=== PATIENT | male | born 1955 | race Caucasian/White ===

== ENCOUNTER 2018-07-18 15:12 | Emergency (ER) | payer OTHER ==
[~2018-07-18 15:12] MED LIST: AMIODARONE HCL200 M1 PO; METOPROLOL SUCC25 M1 PO; PERCOCET 5-3251 EACH PO; WARFARIN SODIUM5 M1 PO
[2018-07-18 15:45] VITALS: BP 165/80
[2018-07-18] MEDS ORDERED: ESCITALOPRAM OX10 MG PO (15:47)
[2018-07-18] MEDS ORDERED: ATORVASTATIN CA40 M1 PO (15:47)
--- NOTE | 2018-07-18 17:47 | ULTRASOUND REPORT ---
EXAMINATION: US TRIPLEX OF LOWER EXTREMITIES, BILATERAL CLINICAL INFORMATION: Edema with swelling. COMPARISON: None TECHNIQUE: Color-flow triplex imaging with spectral analysis and compression Doppler were performed on the lower extremities. FINDINGS: Respiratory variation, normal compression and augmented flow are noted throughout the lower extremities. The visualized common femoral vein, superficial femoral vein, profunda femoral vein, popliteal vein and midcalf peroneal and posterior tibial venous segments show no evidence of deep venous thrombosis. There is no Vitale's cyst. IMPRESSION: No evidence of deep venous thrombosis involving the bilateral lower extremities.
--- NOTE | 2018-07-18 19:50 | ED UPPER/LOWER EXTREMITY COMPL ---
History of Present Illness General Chief Complaint: Lower Extremity Problems Stated Complaint: SIB DR. LAURENT FOR US Source: patient, old records Exam Limitations: no limitations Vital Signs & Intake/Output Vital Signs & Intake/Output Vital Signs Date Time Temp Pulse Resp B/P B/P Pulse O2 O2 Flow FiO2 Mean Ox Delivery Rate 07/18 2033 98 Room Air 07/18 1545 98.4 88 22 165/80 96 Room Air ED Intake and Output 07/19 0000 07/18 1200 Intake Total Output Total Balance Patient 231 lb Weight Allergies Coded Allergies: MDX - Strawberries (STRAWBERRIES) (Intermediate, RASH 11/17/11) MDX - Bee Venom (Bee Venom) (BEE STINGS 11/17/11) Uncoded Allergies: MUSHROOMS (Intermediate, RASH 11/17/11) PEPPERS (GI UPSET 05/23/16) Reconcile Medications Amiodarone (Cordarone) 200 MG TABLET 1 TAB PO DAILY CARDIAC (Reported) Atorvastatin Calcium 40 MG TABLET 1 TAB PO DAILY CHOL (Reported) Escitalopram Oxalate 10 MG TABLET 1 TAB PO DAILY PAIN (Reported) Metoprolol Succinate 25 MG TAB 1 TAB PO DAILY BP (Reported) Oxycodone HCl/Acetaminophen (Percocet 5-325 MG Tablet) 1 EACH TABLET 1 TAB PO Q4-6 PRN PAIN Warfarin Sodium 5 MG TABLET 1 TAB PO DAILY THINNER (Reported) Triage Note: PER PT SENT BY DR LAURENT FOR US OF BLE, PT WITH SWELLING DENIES RECENT TRAVEL NO PAIN NO SOB NO CP Triage Nurses Notes Reviewed? yes HPI: Patient sent in by his primary care physician for evaluation of bilateral leg edema. Patient first noticed the swelling last week. There is no pain. Patient states the swelling goes down when he is sleeping in his legs are elevated LFTs been out for a little while the swelling comes back. He denies any chest pain or shortness of breath. Past History Travel History Traveled to [place] past 21 day No Medical History Any Pertinent Medical History? 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 porpheria Surgical History Surgical History: CRANIAL SURGERIES (31 FACIAL FRACTURES) NECK FRACTURES Psychosocial History Who do you live with Patient/Self What is your primary language Cameroonian Tobacco Use: Current Daily Use Daily Tobacco Use Amount/Type: => 5 Cigarettes daily ETOH Use: occasional use Illicit Drug Use: denies illicit drug use Family History Hx Contributory? No Review of Systems Review of Systems Constitutional: Reports: no symptoms. EENTM: Reports: no symptoms. Respiratory: Reports: no symptoms. Cardiovascular: Reports: no symptoms. Gastrointestinal/Abdominal: Reports: no symptoms. Genitourinary: Reports: no symptoms. Musculoskeletal: Reports: see HPI. Skin: Reports: no symptoms. Neurological/Psychological: Reports: no symptoms. Hematologic/Endocrine: Reports: no symptoms. Immunological: Reports: no symptoms. All Other Systems: Reviewed and Negative Physical Exam Physical Exam General Appearance: well developed/nourished, mild distress Head: atraumatic Eyes: Bilateral: PERRL, EOMI. Ears, Nose, Throat: normal pharynx, normal ENT inspection, hearing grossly normal Neck: normal inspection, supple Cardiovascular/Respiratory: normal breath sounds, normal peripheral pulses, regular rate/rhythm Back: normal inspection Neurologic/Tendon: normal sensation, normal motor functions, normal tendon functions Skin: intact, normal color, warm/dry Lymphatic: no anterior cervical louie Comments: One plus edema to both legs. Progress Differential Diagnosis: CHF, DVT Plan of Care: Orders Procedure Date/time Status TROPONIN LEVEL 07/18 1549 Complete PARTIAL THROMBOPLASTIN TIME 07/18 1549 Complete PROTHROMBIN TIME 07/18 1549 Complete COMPREHENSIVE METABOLIC PANEL 07/18 1549 Complete CBC WITHOUT DIFFERENTIAL 07/18 1549 Complete B-TYPE NATRIURETIC PEP (BNP) 07/18 1549 Complete EKG 07/18 1549 Active Laboratory Tests 07/18/18 1852: Anion Gap 7, Estimated GFR > 60, BUN/Creatinine Ratio 13.0, Glucose 99, Calcium 9.0, Total Bilirubin 0.7, AST 42, ALT 66, Alkaline Phosphatase 120, Troponin I < 0.01, Ktr-V-Ecdpdrcygzc Pept 134 H, Total Protein 6.7, Albumin 4.1, Globulin 2.6, Albumin/Globulin Ratio 1.6, PT 18.4 H, INR 1.68 H, APTT 37, CBC w Diff NO MAN DIFF REQ, RBC 4.94, MCV 98.3 H, MCH 32.8 H, MCHC 33.3, RDW 15.1 H, MPV 9.0, Gran % 68.0, Lymphocytes % 22.2, Monocytes % 7.1, Eosinophils % 2.2, Basophils % 0.5, Absolute Granulocytes 5.9, Absolute Lymphocytes 1.9, Absolute Monocytes 0.6, Absolute Eosinophils 0.2, Absolute Basophils 0 Diagnostic Imaging: Viewed by Me: Ultrasound. Discussed w/RAD: Ultrasound. Radiology Impression: NO dvt, NO ARTERIAL BLOCKAGE. Departure Departure Disposition: HOME OR SELF CARE Condition: Stable Clinical Impression Primary Impression: Dependent edema Referrals: Mazin MICHAEL,Alex Sotomayor (PCP/Family) Additional Instructions: KEEP LEGS ELEVATED MUCH POSSIBLE RETURN IF SYMPTOMS WORSEN OR FOR ANY CONCERNS Departure Forms: Customer Survey General Discharge Information
--- NOTE | 2018-07-18 19:51 | ULTRASOUND REPORT ---
EXAMINATION: US NONINVASIVE ASSESSMENT OF THE ARTERIES OF BOTH LOWER EXTREMITIES INTERPRETING VASCULAR \T\ INTERVENTIONAL RADIOLOGIST: Marc Schafer MD CLINICAL INFORMATION: Intermittent claudication. TECHNIQUE: Bilateral lower extremity duplex ultrasound was performed with velocity measurements and waveform analysis in the common femoral arteries, profunda femoris arteries, proximal mid and distal superficial femoral arteries, popliteal arteries and tibial vessels. This study was performed only at rest. COMPARISON: None FINDINGS: Only minimal plaquing is seen. Velocities in cm/sec and phasicity as well as the presence of plaque are reported below. RIGHT LEG: Common Femoral: 207 Profunda Femoris: 72 Proximal SFA: 93 Mid SFA: 125 Distal SFA: 120 Popliteal: 114 Anterior tibial: 39 Peroneal: 30 Posterior tibial: 86 Dorsalis pedis: 59 No areas of significant velocity acceleration is seen to suggest focal stenosis. Monophasic flow is present in the tibial vessels. LEFT LEG: Common Femoral: 138 Profunda Femoris: 41 Proximal SFA: 107 Mid SFA: 96 Distal SFA: 82 Popliteal: 87 Anterior tibial: 49 Peroneal: 29 Posterior tibial: 57 Dorsalis pedis: 56 No evidence of significant velocity acceleration is seen to suggest focal stenoses. More monophasic flow is noted on the left. IMPRESSION: Phasicity of flow suggests disease but no focal areas of velocity acceleration is seen and large amount of significant plaque does not appear to be present. Would recommend ankle-brachial indices are possibly even CT angiography, if it is felt that this patient does indeed clinically have claudication.
[2018-07-18 20:24] LABS: ABSOLUTE BASOPHIL COUNT 0 /CUMM (0.0-0.2); ABSOLUTE EOSINOPHIL COUNT 0.2 /CUMM (0.0-0.7); ABSOLUTE GRANULOCYTE CT 5.9 /CUMM (1.4-6.5); ABSOLUTE LYMPH COUNT 1.9 /CUMM (1.2-3.4); ABSOLUTE MONOCYTE COUNT 0.6 /CUMM (0.10-0.60); BASOPHIL % 0.5 % (0.0-2.0); EOSINOPHIL % 2.2 % (0-5); HEMATOCRIT 48.6 % (42-52); MEAN CORPUSCULAR HGB 32.8 PG (27.0-31.0); MEAN CORPUSCULAR HGB CONC 33.3 G/DL (33.0-37.0); MEAN CORPUSCULAR VOLUME 98.3 FL (80.0-94.0); PLATELET COUNT 181 /CUMM (130-400); RBC DISTRIBUTION WIDTH 15.1 % (11.5-14.5); RED BLOOD CELL CT 4.94 /CUMM (4.70-6.10); WHITE BLOOD CELL COUNT 8.7 /CUMM (4.8-10.8)
[2018-07-18 20:37] LABS: PT 18.4 SEC (9.4-12.5); PTT 37 SEC (25-37)
== END 2018-07-18 20:52 ==
LOC: ERH 15:12
PROVIDERS: Physician Assistant Medical
DX: R60.0 Localized edema (principal); M79.89 Other specified soft tissue disorders; J44.9 Chronic obstructive pulmonary disease, unspecified; F17.210 Nicotine dependence, cigarettes, uncomplicated; Z79.01 Long term (current) use of anticoagulants
CPT/HCPCS: 93005; 93010; 93925; 93970